=== PATIENT | male | born 1945 | race Caucasian/White ===

== ENCOUNTER 2016-12-16 14:23 | Emergency (ER) | payer MEDICARE ==
[2016-12-16] MEDS ORDERED: Lidocaine 2% Jelly 5 ML TUBE ONE (14:37)
[2016-12-16] MEDS ORDERED: Cephalexin 250 MG CAP ONE (14:50)
[2016-12-16] MEDS ORDERED: Lidocaine 1% 20 ML MDV ONE (14:55)
[2016-12-16] MEDS ORDERED: Bacitracin Zinc 1 Packet ONE (15:58)
--- NOTE | 2016-12-16 22:31 | RAD ---
LEFT RING FINGER THREE VIEWS 12/16/16 A comminuted fracture of the terminal tuft of the distal phalanx is seen. There is significant volar displacement of the distal fragments. The joints appear uninvolved. IMPRESSION: Displaced tuft fracture. POS: HOME
== END 2016-12-16 16:19 | disposition home or self-care (01) ==
LOC: BURERS 14:23
DX: S67.195A Crushing injury of left ring finger, initial encounter (principal); S62.635B Displaced fracture of distal phalanx of left ring finger, initial encounter for open fracture; S61.215A Laceration without foreign body of left ring finger without damage to nail, initial encounter; I10 Essential (primary) hypertension; V94.9XXA Unspecified water transport accident, initial encounter
CPT/HCPCS: 12042; J2001

== ENCOUNTER 2017-01-02 12:10 | Outpatient (CLI) | payer MEDICARE | END 2017-01-02 12:11 | disposition home or self-care (01) | LOC: BURLAB 12:10 | PROVIDERS: ATTEND Orthopaedic Surgery Sports Medicine | DX: M23.303 Other meniscus derangements, unspecified medial meniscus, right knee (principal) | CPT/HCPCS: 36415; 84550 ==

== ENCOUNTER 2018-06-13 16:56 | Emergency (ER) | payer MEDICARE ==
[2018-06-13 17:19] LABS: Clarity Cloudy (Clear)
[2018-06-13 17:20] LABS: Bilirubin Small (Negative); Blood, Urine Trace (Negative); Glucose, Urine (Dipstick) 100 mg/dL (Negative); Leukocyte Small (Negative); Nitrite Positive (Negative); Protein, Urine (Dipstick) 30 mg/dL (Neg-Trace)
[2018-06-13 17:22] LABS: Bacteria/HPF 2+ HPF (None Seen); RBC/HPF 0-3 HPF (0-3); Squamous Epithelial 0-3 HPF (0-3); WBC/HPF 21-50 HPF (0-3)
[2018-06-13] MEDS ORDERED: Sulfameth/Trimethoprim DS 800-160mg TAB ONE (17:46)
== END 2018-06-13 17:47 | disposition home or self-care (01) ==
LOC: BURERS 16:56
DX: N39.0 Urinary tract infection, site not specified (principal); I10 Essential (primary) hypertension
CPT/HCPCS: 81003; 81015; 87077; 87086; 99283

== ENCOUNTER 2021-06-02 18:38 | Emergency (ER) | payer MEDICARE ==
[2021-06-02] MEDS ORDERED: Sulfameth/Trimethoprim DS 800-160mg TAB ONE (19:08)
== END 2021-06-02 19:14 | disposition home or self-care (01) ==
LOC: BURERS 18:38
DX: L03.111 Cellulitis of right axilla (principal); I10 Essential (primary) hypertension
CPT/HCPCS: 99283